=== PATIENT | male | born 1990 | race Caucasian/White ===

== ENCOUNTER 2022-08-21 10:09 | Emergency (ER) | payer OTHER, SELFPAY ==
--- NOTE | ~2022-08-21 | CT_ITS ---
Non-contrast CT scan of the Abdomen and Pelvis Clinical indication: Left inguinal pain Technique: 2.5 mm axial scans were obtained through the abdomen and pelvis without intravenous or or al contrast. Dose reduction technique was used on this scan by utilizing automated exposure control a nd iterative reconstruction technique. The dose-length product (DLP) was 1340.88 mGy-cm. Findings: Images through the lung bases reveal no abnormalities. There is no evidence of renal or ureteral calculi. The kidneys and the ureters are nondilated. The liver, spleen, pancreas, gallbladder, and adrenals appear normal. There is no aortic aneurysm. There is no evidence of bowel obstruction. Tiny fat-containing umbilical hernia noted. Images through the pelvis were performed. There is no evidence of ascites or lymphadenopathy. Urinary bladder unremarkable. Prostate gland and seminal vesicles are unremarkable. No hernia evident. Impression: Tiny fat-containing umbilical hernia, otherwise unremarkable exam. Reviewed, dictated and finalized at [facility]. Impression: Tiny fat-containing umbilical hernia, otherwise unremarkable exam.
[2022-08-21 10:10] VITALS: BP 170/93; PULSE 89; RESP 16; TEMP 36.7; O2SAT 98
--- NOTE | 2022-08-21 10:25 | ED.GENADULT ---
HPI - General Adult General Chief complaint: Urogenital-Male Stated complaint: L groin pain Time Seen by Provider: 08/21/22 10:14 History of Present Illness HPI narrative: 32-year-old male no medical problems presents to the emergency room for evaluation of left inguinal pain. States pain began several days ago, worse when he stands up and resolves when he lays flat. Denies any palpable bulge in the area. Denies abdominal pain, nausea vomiting diarrhea, dysuria or fevers. States pain radiates into his left testicle. 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 States he is active and plays volleyball twice a week. Related Data Home Medications Medication Instructions Recorded Confirmed dextroamphetamine-amphetamine ER 15 mg PO DAILY 08/21/22 08/21/22 15 mg 24hr capsule,extend release (Adderall XR) Allergies Allergy/AdvReac Type Severity Reaction Status Date / Time Sulfa (Sulfonamide Allergy Unknown Other Verified 08/21/22 10:25 Antibiotics) Review of Systems Review of Systems: CONSTITUTIONAL: Denies fever, chills, or sweats. EYES: Denies visual changes, redness, or discharge. ENT: Denies rhinorrhea, congestion, sore throat, or otalgia. CARDIOVASCULAR: Denies chest pain, palpitations, or edema. RESPIRATORY: Denies cough or dyspnea. GASTROINTESTINAL: Denies abdominal pain, nausea, vomiting, or diarrhea. GENITOURINARY: Denies dysuria or hematuria. SKIN: Denies rash or itching. MUSCULOSKELETAL: Denies back pain, joint pain, or myalgia. NEUROLOGIC: Denies headache, numbness, dizziness, or weakness. PSYCHIATRIC: Denies anxiety or depression. PMFSH Past Medical History Medical History No pertinent past medical history Family History Family History Mother Family history of diabetes mellitus in first degree relative Other Carcinoma of colon Social History Social History Smoking status: Never smoker Alcohol intake: current Exam Narrative: GENERAL: Well-appearing, well-nourished, no physical limitations, and in no acute distress. HEAD: Normocephalic, atraumatic. EYES: Conjunctivae normal, PERRLA and EOMI. CHEST: Clear to auscultation. No respiratory distress. No wheezes rales or rhonchi. HEART: Regular rate and rhythm. No murmur heard. Normal peripheral pulses. ABDOMEN: Soft, left inguinal tenderness, nondistended, normal active bowel sounds. : Normal external male exam. BACK: No CVA tenderness EXTREMITIES: Normal range of motion. No edema. No clubbing or cyanosis SKIN: Warm, dry, no rash. No noted wounds NEURO: No focal deficits. Alert and oriented x3. MAEW. CN's II-XI intact bilaterally, normal gait PSYCH: Cooperative. Normal mood and affect. Course Vital Signs Vital signs: Vital Signs Temperature 36.7 C 08/21/22 10:10 Pulse Rate 89 08/21/22 10:10 Respiratory Rate 16 08/21/22 10:10 Blood Pressure 170/93 H 08/21/22 10:10 Pulse Oximetry 98 08/21/22 10:10 Temperature 36.7 C 08/21/22 10:10 Pulse Rate 89 08/21/22 10:10 Respiratory Rate 16 08/21/22 10:10 Blood Pressure 170/93 H 08/21/22 10:10 Pulse Oximetry 98 08/21/22 10:10 Medical Decision Making MDM Narrative Medical decision making narrative: 32-year-old male presented emergency room complaints of a left inguinal tenderness since yesterday. Lab work was unremarkable. CT scan showed a small fat-containing inguinal hernia. Will have patient follow-up with general surgery for further evaluation. Vital Signs Vital Signs: Vital Signs Temperature 36.7 C 08/21/22 10:10 Pulse Rate 89 08/21/22 10:10 Respiratory Rate 16 08/21/22 10:10 Blood Pressure 170/93 H 08/21/22 10:10 Pulse Oximetry 98 08/21/22 10:10 Temperature 36.7 C 08/21/22 10:10 Pulse Rate 89 08/21/22 10:10
[2022-08-21 10:44] LABS: Basophils Percent Auto 0.5 % (0.2-1.2); Eosinophils Absolute Auto 0.1 K/mm3 (0-0.3); Eosinophils Percent Auto 1.4 % (0-4.4); Hematocrit 48.4 % (42.0-52.0); Hemoglobin 16.5 g/dL (14.0-18.0); Immature Granulocyte Absolute 0.03 K/mm3 (0.00-0.031); Immature Granulocyte Percent A 0.4 % (0-0.5); Lymphocytes Percent Auto 23.8 % (18.3-44.2); Mean Corpuscular HGB Conc 34.1 g/dl (32-36); Mean Corpuscular Hemoglobin 30.2 pg (26-34); Mean Corpuscular Volume 88.6 fl (80-100); Mean Platelet Volume 9.1 fl (7.4-10.4); Monocytes Absolute Auto 0.7 K/mm3 (0.1-0.6); Monocytes Percent Auto 8.1 % (2.6-8.5); Neutrophils Absolute Auto 5.3 K/mm3 (1.3-6.7); Neutrophils Percent Auto 65.8 % (45.5-73.1); Platelet Count Result 328 k/mm3 (150-375); Red Blood Count 5.46 M/mm3 (4.6-6.20); Red Cell Distribution Width 12.3 % (11.5-14.5)
[2022-08-21 10:47] LABS: Appearance Urine Clear (Clear); Bacteria Urine None Seen /hpf; Bilirubin Urine Negative (Negative); Blood Urine Negative (Negative); Color Urine Yellow (Yellow); Glucose Urine UA Negative (Negative); Ketones Urine Trace mg/dL (Negative); Leukocyte Esterase Ur Negative LEU/UL (Negative); Nitrate Urine Negative (Negative); Non Pathogenic Casts 0-2; Protein Urine Trace mg/dL (Negative); RBC Urine 0-2 /hpf (0-2); Squamous Epithelial Cell Urine None seen /hpf (Few); Urobilinogen Urine 0.2 mg/dL (<2.0); WBC Urine 0-5 /hpf
[2022-08-21 10:50] LABS: Alanine Aminotransferase 32 U/L (6-50); Albumin Level 4.9 g/dL (3.5-5.1); Alkaline Phosphatase 77 U/L (38-126); Anion Gap 13 mmol/L (8-16); Aspartate Amino Transferase 34 U/L (17-59); Blood Urea Nitrogen 9 mg/dL (9-20); Calcium 9.2 mg/dL (8.4-10.2); Carbon Dioxide 22 mmol/L (22-30); Chloride 106 mmol/L (98-107); Estimated CRCL calculation 144 ml/min; Estimated Glomerular Filt Rate > 60; Glucose 105 mg/dL (65-110); Potassium 3.9 mmol/L (3.4-5.0); Sodium 141 mmol/L (137-145)
[2022-08-21 10:51] LABS: Add Urine Microscopic? YES
== END 2022-08-21 11:34 | disposition home or self-care (01) ==
PROVIDERS: Emergency Provider Nurse Practitioner Family; PCP Emergency Medicine
DX: K40.90 Unilateral inguinal hernia, without obstruction or gangrene, not specified as recurrent (principal)
CPT/HCPCS: 36415; 74176; 80053; 81001; 85025; 99284

== ENCOUNTER → 2023-01-04 08:57 | Outpatient (CLI) | payer OTHER, SELFPAY ==
--- NOTE | ~2023-01-04 | XR_ITS ---
XR lumbar spine 2-3V 01/04/2023 09:30 Indication: Back pressure Procedure: 3 views lumbar spine Comparison: No prior studies for comparison. Findings: Mild levoscoliosis. Pedicles intact. Vertebral body heights are maintained. Mild disc narro wing at L5-S1. No evidence for spondylolisthesis. Sacral foramen are symmetric. No acute fracture or traumatic malalignment. Impression: 1: Mild lumbar spondylosis. Reviewed, dictated and finalized at location A. Impression: 1: Mild lumbar spondylosis.
--- NOTE | ~2023-01-04 | XR_ITS ---
XR abdomen/kub 1V 01/04/2023 09:30 INDICATION: Left flank pain TECHNIQUE: KUB COMPARISON: No prior studies for comparison. FINDINGS: Bowel gas pattern is normal. There is no evidence of free air, mass, organomegaly, ascites or obstruction. No abnormal calculi are seen. The bones appear intact. IMPRESSION: 1: No acute abdominal abnormality identified. Reviewed, dictated and finalized at location A.
== END ==
PROVIDERS: PCP Emergency Medicine; Visit Provider Emergency Medicine
DX: M43.06 Spondylolysis, lumbar region (principal)
CPT/HCPCS: 72100; 74018

== ENCOUNTER 2023-05-13 18:59 | Emergency (ER) | payer OTHER, SELFPAY ==
--- NOTE | ~2023-05-13 | CT_ITS ---
EXAMINATION: CTA chest PE abdomen pel DATE: 05/13/2023 22:38 INDICATION: Shortness of breath, near syncope eval PE TECHNIQUE: Computed tomography angiography (CTA) of the chest was performed with 100 mL Omnipaque-350 intravenous contrast timed to evaluate the pulmonary arteries, followed by portal venous phase imagi ng of the abdomen and pelvis. Coronal maximum intensity projection 3D-reconstructions were created by the technologist. The dose-length product (DLP) was 2304.94 mGy-cm. Automated exposure control and i terative reconstruction technique were employed. COMPARISON: 08/21/2022. FINDINGS: CHEST: Lung parenchyma and airways: Mild diffuse ground glass opacities. Lingular and right lateral costophr enic angle scar/atelectasis. Pleura: Unremarkable. Thoracic inlet, axillae and chest wall: No thyroid or soft tissue mass. Minimal symmetric bilateral g ynecomastia. Thoracic aorta: No acute process detected in the chest. Mediastinum: Normal. Heart and pericardium: Normal. Coronary artery calcifications: Absent. Thoracic bones: No acute osseous finding. Pulmonary arteries: Study quality: There is mild motion artifact present, overall diagnostic. No pulm onary emboli detected. ABDOMEN/PELVIS: Liver: Normal. Biliary/Gallbladder: Gallbladder is normal. No bile duct dilation. Pancreas: No mass or duct dilation. Spleen: Normal. Adrenals:No mass. Kidneys: No suspicious mass, obstructing stone, or hydronephrosis. GI tract: No small or large bowel dilation. Normal appendix. Mesentery/Peritoneum: No ascites, mass, or free air. Retroperitoneum: No mass. Pelvis: Pelvic organs are within normal limits. Soft Tissues: Small uncomplicated fat-containing umbilical hernia. Abdominopelvic bones: No acute osseous finding. IMPRESSION: No CT evidence of acute pulmonary embolus. Mild diffuse groundglass opacities in the lungs, a nonspecific finding, may represent mild edema, ate lectasis, or infection/inflammation. No acute process detected in the abdomen or pelvis. Reviewed, dictated and finalized at location K. LE MECHANIC HELPER IMPRESSION: No CT evidence of acute pulmonary embolus. Mild diffuse groundglass opacities in the lungs, a nonspecific finding, may rep resent mild edema, atelectasis, or infection/inflammation. No acute process detected in the abdomen or pelvis.
[2023-05-13 19:16] VITALS: BP 166/89; PULSE 61; RESP 20; TEMP 36.3; O2SAT 100
--- NOTE | 2023-05-13 20:44 | ECG_ITS ---
Measurements Intervals [place] Rate: 60 P: -12 LA: 162 QRS: 8 QRSD: 94 T: 13 QT: 400 QTc: 403 Interpretive Statements SINUS RHYTHM NO PREVIOUS ECG AVAILABLE FOR COMPARISON Electronically Signed On 05-14-2023 16:26:05 DIEING OUT MACHINE OPERATOR by Ken Cortes M.D.
[2023-05-13 21:32] VITALS: BP 135/77; PULSE 62; RESP 15; O2SAT 100
[2023-05-13 21:38] LABS: Basophils Absolute Auto 0.1 K/mm3 (0.0-0.1); Basophils Percent Auto 0.5 % (0.2-1.2); Eosinophils Absolute Auto 0.1 K/mm3 (0-0.3); Eosinophils Percent Auto 0.6 % (0-4.4); Hematocrit 48.3 % (42.0-52.0); Hemoglobin 16.5 g/dL (14.0-18.0); Immature Granulocyte Absolute 0.03 K/mm3 (0.00-0.031); Immature Granulocyte Percent A 0.3 % (0-0.5); Lymphocytes Absolute Auto 2.51 K/mm3 (0.9-3.2); Lymphocytes Percent Auto 26.6 % (18.3-44.2); Mean Corpuscular HGB Conc 34.2 g/dl (32-36); Mean Corpuscular Hemoglobin 30.1 pg (26-34); Mean Corpuscular Volume 88.1 fl (80-100); Mean Platelet Volume 9.6 fl (7.4-10.4); Monocytes Absolute Auto 0.7 K/mm3 (0.1-0.6); Monocytes Percent Auto 7.4 % (2.6-8.5); Neutrophils Absolute Auto 6.1 K/mm3 (1.3-6.7); Neutrophils Percent Auto 64.6 % (45.5-73.1); Platelet Count Result 303 k/mm3 (150-375); Red Blood Count 5.48 M/mm3 (4.6-6.20); Red Cell Distribution Width 12.3 % (11.5-14.5); White Blood Count 9.4 K/mm3 (4.5-10.0)
[2023-05-13 21:39] LABS: Appearance Urine Clear (Clear); Bilirubin Urine Negative (Negative); Blood Urine Negative (Negative); Color Urine Yellow (Yellow); Glucose Urine UA Negative (Negative); Ketones Urine Trace mg/dL (Negative); Leukocyte Esterase Ur Negative LEU/UL (Negative); Nitrate Urine Negative (Negative); Protein Urine Negative (Negative); Specific Grav Ur 1.019 (1.001-1.035); Urobilinogen Urine 0.2 mg/dL (<2.0)
[2023-05-13 21:45] LABS: Lactic Acid Reflex 1.1 mmol/L (0.7-2.0)
[2023-05-13 21:52] LABS: Prothrombin Time 13.5 Seconds (11.1-14.7)
[2023-05-13 21:53] LABS: Partial Thromboplastin Time 33.6 SECONDS (22.3-36.8)
[2023-05-13 22:01] LABS: Add Urine Microscopic? NO
[2023-05-13 22:02] LABS: Alanine Aminotransferase 30 U/L (6-50); Albumin Level 4.7 g/dL (3.5-5.1); Alkaline Phosphatase 72 U/L (38-126); Anion Gap 7 mmol/L (8-16); Aspartate Amino Transferase 40 U/L (17-59); Bilirubin,Total 1.2 mg/dL (0.2-1.3); Blood Urea Nitrogen 11 mg/dL (9-20); Calcium 9.9 mg/dL (8.4-10.2); Carbon Dioxide 26 mmol/L (22-30); Chloride 104 mmol/L (98-107); Estimated CRCL calculation 130 ml/min; Estimated Glomerular Filt Rate > 60; Glucose 86 mg/dL (65-110); Lipase 60 U/L (23-300); Magnesium 2.1 mg/dL (1.6-2.3); Potassium 4.2 mmol/L (3.4-5.0); Sodium 137 mmol/L (137-145)
[2023-05-13 22:12] LABS: Influenza A QL RT-PCR Negative (Negative); Influenza B QL RT-PCR Negative (Negative); SARS-CoV-2 RNA PCR Negative (Negative)
[2023-05-13 22:13] LABS: NT Pro B Type Natriuretic Pept < 20 pg/mL (19.9-100); Troponin I < 0.012 ng/mL (0.000-0.034)
--- NOTE | 2023-05-13 22:15 | ED.GENADULT ---
HPI - General Adult General Chief complaint: Dizziness Stated complaint: dizzy Time Seen by Provider: 05/13/23 20:24 History of Present Illness HPI narrative: Patient 33-year-old gentleman who presents emergency department with chief complaint of shortness of breath and dizzy episode. The patient reports that he had an episode today where he was walking and noticed that he felt as though his heart was beating very heavy and may have been beating fast the same time the patient states he felt very short of breath when this was going on hand felt lightheaded. The patient states that the lightheadedness is resolved but does state that he feels a little short of breath. Patient reports that he has discomfort in the left upper quadrant that radiates to the back. Related Data Home Medications Medication Instructions Recorded Confirmed dextroamphetamine-amphetamine ER 15 mg PO DAILY 08/21/22 08/21/22 15 mg 24hr capsule,extend release (Adderall XR) Allergies Allergy/AdvReac Type Severity Reaction Status Date / Time Sulfa (Sulfonamide Allergy Unknown Other Verified 09/03/22 09:28 Antibiotics) Review of Systems Review of Systems: A 10 system review of systems was completed on the patient and is negative except for what is stated in the HPI. Nursing and ancillary documentation was reviewed. [facility] Past Medical History Medical History No pertinent past medical history Surgical History Surgical History No pertinent past surgical history Family History Family History Mother Family history of diabetes mellitus in first degree relative Other Carcinoma of colon Social History Social History Smoking status: Current every day smoker Tobacco type: e-cigarettes/vaping Alcohol intake: current Alcohol use details: Used to drink daily but since March 2022 only socially/weekends Exam Narrative: GENERAL: Well-appearing, well-nourished, and in no acute distress. HEAD: Normocephalic, atraumatic. EYES: PERRLA and EOMI. ENT: Nares clear, no rhinorrhea or epistaxis. Mucous membranes moist. NECK: Supple. CHEST: Clear to auscultation. No respiratory distress. HEART: Regular rate and rhythm. No murmur heard. Normal peripheral pulses. ABDOMEN: Soft, tenderness to palpation in the epigastric and left upper quadrant, nondistended, normal active bowel sounds. EXTREMITIES: Normal range of motion. No edema. SKIN: Warm, dry, no rash. NEURO: No focal deficits. Alert and oriented x3. PSYCH: Normal mood and affect. Course Vital Signs Vital signs: Vital Signs Temperature 36.3 C L 05/13/23 19:16 Pulse Rate 61 05/13/23 19:16 Respiratory Rate 20 05/13/23 19:16 Blood Pressure 166/89 H 05/13/23 19:16 Pulse Oximetry 100 05/13/23 19:16 Oxygen Delivery Room Air 05/13/23 19:16 Temperature 36.3 C L 05/13/23 19:16 Pulse Rate 60 05/13/23 22:16 Respiratory Rate 13 05/13/23 22:16 Blood Pressure 132/77 05/13/23 22:16 Pulse Oximetry 99 05/13/23 22:16 Oxygen Delivery Room Air 05/13/23 19:16 Medical Decision Making [facility] Narrative Medical decision making narrative: Differential diagnosis includes pneumonia, pulmonary embolism, pneumothorax, intra-abdominal infection, thoracic aortic aneurysm, pneumonia Laboratory studies were obtained patient showed a normal white blood cell count electrolytes within normal limits troponin was negative BNP was negative procalcitonin 0.0 urinalysis was negative COVID and flu were negative CTA chest with abdomen pelvis showed no intra-abdominal pathology but did show ground-glass opacities consistent with pneumonitis. Patient was started on doxycycline and patient is discharged home Vital Signs
[2023-05-13 22:16] VITALS: BP 132/77; PULSE 60; RESP 13; O2SAT 99
[2023-05-13 23:00] VITALS: PULSE 63; RESP 9; O2SAT 99
[2023-05-13 23:17] VITALS: BP 134/76; PULSE 69; RESP 8; O2SAT 98
== END 2023-05-13 23:34 | disposition home or self-care (01) ==
PROVIDERS: Emergency Provider Emergency Medicine; PCP Emergency Medicine
DX: J98.4 Other disorders of lung (principal); Z20.822 Contact with and (suspected) exposure to COVID-19; F17.290 Nicotine dependence, other tobacco product, uncomplicated
CPT/HCPCS: 36415; 71275; 74177; 80053; 81003; 83605; 83690; 83735; 83880; 84145; 84484; 85025; 85610; 85730; 87636; 93005; 99284; Q9967

== ENCOUNTER 2023-06-13 10:53 | Outpatient (CLI) | payer OTHER, SELFPAY ==
--- NOTE | ~2023-06-13 | XR_ITS ---
EXAMINATION: XR chest 2V 06/13/2023 12:51 INDICATION: Pneumonia PROCEDURE: 2 view chest COMPARISON: No prior studies for comparison. FINDINGS: The lungs are clear. The cardiomediastinal silhouette is within normal limits. There are no pleural effusions. There is no pneumothorax suspected. IMPRESSION: 1: NO ACUTE CARDIOPULMONARY DISEASE. Reviewed, dictated and finalized at location B.
== END 2023-06-13 10:54 ==
PROVIDERS: PCP Emergency Medicine; Visit Provider Emergency Medicine
DX: J18.9 Pneumonia, unspecified organism (principal)
CPT/HCPCS: 71046

== ENCOUNTER 2023-07-22 09:28 | Emergency (ER) | payer OTHER, SELFPAY ==
--- NOTE | ~2023-07-22 | CT_ITS ---
EXAMINATION: CT abdomen pelvis w con DATE: 07/22/2023 10:34 INDICATION: Left abdominal pain. TECHNIQUE: Computed tomography (CT) of the abdomen and pelvis was performed with 100 mL Omnipaque 350 intravenous contrast. Automated exposure control and iterative reconstruction technique were employe d. The dose-length product was 1232.29 mGy-cm. COMPARISON: CT abdomen and pelvis 05/13/2023 FINDINGS: The visualized portions of the lung bases demonstrate mild atelectasis. No pleural effusion . The heart size is normal. No pericardial effusion. The liver, spleen, gallbladder, pancreas, adrena l glands, and kidneys are normal. There are no dilated loops of bowel. The appendix is normal. There is an umbilical hernia containing fat. There are no pathologically enlarged lymph nodes. There is no free intraperitoneal fluid. There is mild thoracic and lumbar spondylosis. IMPRESSION: 1. Umbilical hernia containing fat. Reviewed, dictated and finalized at location A.
[2023-07-22 09:54] LABS: Basophils Percent Auto 0.6 % (0.2-1.2); Eosinophils Absolute Auto 0.1 K/mm3 (0-0.3); Eosinophils Percent Auto 1.3 % (0-4.4); Immature Granulocyte Absolute 0.01 K/mm3 (0.00-0.031); Immature Granulocyte Percent A 0.2 % (0-0.5); Lymphocytes Absolute Auto 1.92 K/mm3 (0.9-3.2); Lymphocytes Percent Auto 30.6 % (18.3-44.2); Mean Corpuscular Hemoglobin 30.2 pg (26-34); Mean Corpuscular Volume 88.8 fl (80-100); Mean Platelet Volume 9.7 fl (7.4-10.4); Monocytes Absolute Auto 0.5 K/mm3 (0.1-0.6); Monocytes Percent Auto 8.3 % (2.6-8.5); Neutrophils Absolute Auto 3.7 K/mm3 (1.3-6.7); Platelet Count Result 285 k/mm3 (150-375); Red Blood Count 5.63 M/mm3 (4.6-6.20); Red Cell Distribution Width 11.8 % (11.5-14.5); White Blood Count 6.3 K/mm3 (4.5-10.0)
[2023-07-22 10:03] VITALS: BP 154/94; PULSE 77; RESP 14; TEMP 36.6; O2SAT 98
[2023-07-22 10:06] LABS: Alanine Aminotransferase 27 U/L (6-50); Albumin Level 5.1 g/dL (3.5-5.1); Alkaline Phosphatase 72 U/L (38-126); Anion Gap 9 mmol/L (4-12); Aspartate Amino Transferase 35 U/L (17-59); Bilirubin,Total 1.3 mg/dL (0.2-1.3); Blood Urea Nitrogen 10 mg/dL (9-20); Calcium 10.1 mg/dL (8.4-10.2); Carbon Dioxide 24 mmol/L (22-30); Chloride 107 mmol/L (98-107); Estimated Glomerular Filt Rate > 60; Glucose 116 mg/dL (65-110); Lipase 56 U/L (23-300); Potassium 4.2 mmol/L (3.4-5.0); Sodium 140 mmol/L (137-145)
--- NOTE | 2023-07-22 10:11 | ED.ABDPAIN ---
HPI - Abdominal Pain General Chief Complaint: Abdominal Pain Stated Complaint: r/o sbo Time Seen by Provider: 07/22/23 09:47 Source: patient Mode of arrival: ambulatory Limitations: no limitations History of Present Illness HPI narrative: This is a 33-year-old male who presents from PCP office for chief complaint of left-sided abdominal pain for the past couple of weeks. Patient reports the pain radiates from left upper to left lower abdomen. He was referred by PCP for CT scan and labs. Patient states that the pain is getting increasingly worse after eating food. Reports that he will eat and then started to have pain a couple hours later. Reports a burning type pain. Reports that he tried to use ibuprofen regularly for pain control but had couple episodes of bloody stools so stop. Denies fevers, chills, nausea, vomiting flank pain or urinary symptoms. States he feels completely fine unless he eats food. Denies abdominal surgical history. Social history includes working for [employer]. He does state that he is a somewhat regular alcohol drinker but primarily drinks socially. Related Data Home Medications Medication Instructions Recorded Confirmed dextroamphetamine-amphetamine ER 15 mg PO DAILY 08/21/22 08/21/22 15 mg 24hr capsule,extend release (Adderall XR) Allergies Allergy/AdvReac Type Severity Reaction Status Date / Time Sulfa (Sulfonamide Allergy Unknown Other Verified 09/03/22 09:28 Antibiotics) Review of Systems Review of Systems: All systems as dictated in HPI [facility] Past Medical History Medical History No pertinent past medical history Surgical History Surgical History No pertinent past surgical history Family History Family History Mother Family history of diabetes mellitus in first degree relative Other Carcinoma of colon Social History Social History Smoking status: Current every day smoker Tobacco type: e-cigarettes/vaping Alcohol intake: current Alcohol use details: Used to drink daily but since March 2022 only socially/weekends Exam Narrative: GENERAL: Well-appearing, well-nourished, and in no acute distress. HEAD: Normocephalic, atraumatic. EYES: PERRLA and EOMI. ENT: Nares clear, no rhinorrhea or epistaxis. Mucous membranes moist. Oropharynx without tonsillar hypertrophy exudate or other lesions. NECK: Supple. No adenopathy or masses. CHEST: No respiratory distress. Clear to auscultation. No wheezes rales or rhonchi HEART: Regular rate and rhythm. No murmur heard. Normal peripheral pulses. ABDOMEN: Soft, nontender, nondistended, normal active bowel sounds. MSK: Normal range of motion. No edema. SKIN: Warm, dry, no rash. NEURO: Alert and oriented x3. No focal deficits. PSYCH: Normal mood and affect. Course Vital Signs Vital signs: Vital Signs Temperature 98 F 07/22/23 10:03 Pulse Rate 77 07/22/23 10:03 Respiratory Rate 14 07/22/23 10:03 Blood Pressure 154/94 H 07/22/23 10:03 Pulse Oximetry 98 07/22/23 10:03 Oxygen Delivery Room Air 07/22/23 10:03 Temperature 98.3 F 07/22/23 11:14 Pulse Rate 78 07/22/23 11:14 Respiratory Rate 18 07/22/23 11:14 Blood Pressure 141/73 H 07/22/23 11:14 Pulse Oximetry 99 07/22/23 11:14 Oxygen Delivery Room Air 07/22/23 10:03 MDM - Abdominal Pain MDM Narrative Medical decision making narrative: This is a 33-year-old male who presents to the ED with chief complaint left-sided abdominal pain for the past few weeks. He is being sent by PCP for expedited abdominal workup. Vitals are normal. Exam shows mild left lower quadrant tenderness. Lab workup unremarkable. CT abdomen pelvis with IV contrast: IMPRESSION: 1.
[2023-07-22 10:51] LABS: Appearance Urine Clear (Clear); Bilirubin Urine Negative (Negative); Blood Urine Negative (Negative); Color Urine Yellow (Yellow); Glucose Urine UA Negative (Negative); Ketones Urine Trace mg/dL (Negative); Leukocyte Esterase Ur Negative LEU/UL (Negative); Nitrate Urine Negative (Negative); Protein Urine Negative (Negative); Urobilinogen Urine 0.2 mg/dL (<2.0); pH Urine 5.5 (5.0-9.0)
[2023-07-22 10:55] LABS: Specific Grav Ur 1.041 (1.001-1.035)
[2023-07-22 10:56] LABS: Add Urine Microscopic? NO
[2023-07-22 11:14] VITALS: BP 141/73; PULSE 78; RESP 18; TEMP 36.8; O2SAT 99
== END 2023-07-22 11:16 | disposition home or self-care (01) ==
PROVIDERS: Emergency Medicine; Emergency Provider Physician Assistant; PCP Emergency Medicine
DX: K29.70 Gastritis, unspecified, without bleeding (principal); K42.9 Umbilical hernia without obstruction or gangrene; F17.290 Nicotine dependence, other tobacco product, uncomplicated
CPT/HCPCS: 36415; 74177; 80053; 81001; 81003; 83690; 85025; 99284; Q9967

== ENCOUNTER 2023-11-03 10:29 | Emergency (ER) | payer OTHER, SELFPAY ==
--- NOTE | ~2023-11-03 | XR_ITS ---
EXAMINATION: XR chest 2V DATE: 11/03/2023 13:06 INDICATION: Chest pain and tightness radiating down the left arm TECHNIQUE: PA and lateral views of the chest were obtained. COMPARISON: Chest radiograph dated 06/13/2023 FINDINGS: The lungs remain clear with no focal airspace opacities, pulmonary edema, pleural effusion or pneumot horax. The cardiomediastinal silhouette is normal. Visualized bones and soft tissues are unremarkable . IMPRESSION: 1. No acute cardiopulmonary disease. Reviewed, dictated and finalized at location A.
[2023-11-03 10:35] VITALS: BP 132/102; PULSE 64; RESP 15; TEMP 36.8; O2SAT 97
--- NOTE | 2023-11-03 10:35 | ECG_ITS ---
Test Date: 2023-11-03 10:40:24 Measurements Intervals [place] Rate: 63 P: 6 [place]: 154 QRS: -2 QRSD: 93 T: 38 QT: 373 QTc: 383 Interpretive Statements SINUS RHYTHM WITH SINUS ARRHYTHMIA OTHERWISE NORMAL ECG No previous ECG available for comparison Electronically Signed On 11-03-2023 11:03:35 CDT by Shaji Jackson M.D.
[2023-11-03 11:09] LABS: Basophils Absolute Auto 0.1 K/mm3 (0.0-0.1); Basophils Percent Auto 0.7 % (0.2-1.2); Eosinophils Absolute Auto 0.1 K/mm3 (0-0.3); Eosinophils Percent Auto 1.3 % (0-4.4); Hematocrit 48.2 % (42.0-52.0); Hemoglobin 16.6 g/dL (14.0-18.0); Immature Granulocyte Absolute 0.02 K/mm3 (0.00-0.031); Immature Granulocyte Percent A 0.3 % (0-0.5); Lymphocytes Absolute Auto 1.93 K/mm3 (0.9-3.2); Lymphocytes Percent Auto 27.1 % (18.3-44.2); Mean Corpuscular HGB Conc 34.4 g/dl (32-36); Mean Corpuscular Hemoglobin 30.8 pg (26-34); Mean Corpuscular Volume 89.4 fl (80-100); Mean Platelet Volume 10.1 fl (7.4-10.4); Monocytes Absolute Auto 0.6 K/mm3 (0.1-0.6); Neutrophils Absolute Auto 4.5 K/mm3 (1.3-6.7); Neutrophils Percent Auto 62.6 % (45.5-73.1); Platelet Count Result 247 k/mm3 (150-375); Red Blood Count 5.39 M/mm3 (4.6-6.20); Red Cell Distribution Width 12.3 % (11.5-14.5); White Blood Count 7.1 K/mm3 (4.5-10.0)
[2023-11-03 11:31] LABS: Alanine Aminotransferase 28 U/L (6-50); Alkaline Phosphatase 77 U/L (38-126); Anion Gap 14 mmol/L (4-12); Aspartate Amino Transferase 35 U/L (17-59); Bilirubin,Total 1.1 mg/dL (0.2-1.3); Blood Urea Nitrogen 10 mg/dL (9-20); Calcium 9.7 mg/dL (8.4-10.2); Carbon Dioxide 22 mmol/L (22-30); Chloride 103 mmol/L (98-107); Estimated CRCL calculation 138 ml/min; Estimated Glomerular Filt Rate > 60; Glucose 106 mg/dL (65-110); Lipase 54 U/L (23-300); Potassium 4.1 mmol/L (3.4-5.0); Sodium 139 mmol/L (137-145)
[2023-11-03 11:37] LABS: Partial Thromboplastin Time 25.1 Seconds (22.3-36.8); Prothrombin Time 13.6 Seconds (11.1-14.7)
[2023-11-03 11:43] LABS: Troponin I < 0.012 ng/mL (0.000-0.034)
[2023-11-03 12:15] VITALS: BP 150/89; PULSE 57; PULSE 63; RESP 12; O2SAT 99
[2023-11-03 12:17] VITALS: BP 150/89; PULSE 58; RESP 14; O2SAT 99
[2023-11-03] MEDS: ASPIRIN 81 MG CHEWABLE TABLET 324 MG PO (12:48)
--- NOTE | 2023-11-03 12:57 | ED.GENADULT ---
HPI - General Adult General Chief complaint: Chest Pain Stated complaint: chest pain Time Seen by Provider: 11/03/23 12:40 History of Present Illness HPI narrative: Patient 33-year-old gentleman who presents emergency department with chief complaint of chest pain. Patient reports since the he has been having discomfort in the left shoulder back chest patient states the pain has been intermittent reports he had limited tingling in his arm and into his neck patient reports that he talk to his primary care provider who recommended he come to the emergency department is also referred him to Cardiology and Neurology. Patient reports that the symptoms are intermittent and currently he is not having any pain Related Data Allergies Allergy/AdvReac Type Severity Reaction Status Date / Time Sulfa (Sulfonamide Allergy Unknown Other Verified 11/03/23 12:18 Antibiotics) Review of Systems Review of Systems: A 10 system review of systems was completed on the patient and is negative except for what is stated in the HPI. Nursing and ancillary documentation was reviewed. PMFSH Past Medical History Medical History No pertinent past medical history Surgical History Surgical History No pertinent past surgical history Family History Family History Mother Family history of diabetes mellitus in first degree relative Other Carcinoma of colon Social History Social History Smoking status: Current every day smoker Tobacco type: e-cigarettes/vaping Alcohol intake: current Alcohol use details: Used to drink daily but since March 2022 only socially/weekends Exam Narrative: GENERAL: Well-appearing, well-nourished, and in no acute distress. HEAD: Normocephalic, atraumatic. EYES: PERRLA and EOMI. ENT: Nares clear, no rhinorrhea or epistaxis. Mucous membranes moist. NECK: Supple. CHEST: Clear to auscultation. No respiratory distress. HEART: Regular rate and rhythm. No murmur heard. Normal peripheral pulses. ABDOMEN: Soft, nontender, nondistended, normal active bowel sounds. EXTREMITIES: Normal range of motion. No edema. SKIN: Warm, dry, no rash. NEURO: No focal deficits. Alert and oriented x3. PSYCH: Normal mood and affect. Course Vital Signs Vital signs: Vital Signs Temperature 36.8 C 11/03/23 10:35 Pulse Rate 64 11/03/23 10:35 Respiratory Rate 15 11/03/23 10:35 Blood Pressure 132/102 H 11/03/23 10:35 Pulse Oximetry 97 11/03/23 10:35 Oxygen Delivery Room Air 11/03/23 10:35 Temperature 36.8 C 11/03/23 10:35 Pulse Rate 56 L 11/03/23 13:41 Respiratory Rate 21 H 11/03/23 13:41 Blood Pressure 120/74 11/03/23 13:41 Pulse Oximetry 98 11/03/23 13:41 Oxygen Delivery Room Air 11/03/23 12:17 Medical Decision Making MDM Narrative Medical decision making narrative: Differential diagnosis includes ACS, noncardiac chest pain, gastroesophageal reflux disease, atypical chest pain, musculoskeletal pain Laboratory studies were obtained on the patient showed normal CBC normal CMP troponin was negative EKG showed sinus rhythm rate of [address] elevation or ST depression Initial troponin was-3 hour troponin was negative Patient will be discharged home to follow-up with his primary care provider Chest x-ray showed no focal infiltrate Vital Signs Vital Signs: Vital Signs Temperature 36.8 C 11/03/23 10:35 Pulse Rate 64 11/03/23 10:35 Respiratory Rate 15 11/03/23 10:35 Blood Pressure 132/102 H 11/03/23 10:35 Pulse Oximetry 97 11/03/23 10:35 Oxygen Delivery Room Air 11/03/23 10:35 Temperature 36.8 C 11/03/23 10:35 Pulse Rate 56 L 11/03/23 13:41 Respiratory Rate 21 H 11/03/23 13:41 Blood
[2023-11-03 13:00] VITALS: PULSE 63; RESP 11; O2SAT 98
--- NOTE | 2023-11-03 13:23 | ECG_ITS ---
Test Date: 2023-11-03 13:36:49 Measurements Intervals [place] Rate: 56 P: 5 ID: [id number] QRS: 0 QRSD: 97 T: 28 QT: 399 QTc: 387 Interpretive Statements SINUS BRADYCARDIA Compared to ECG 11/03/2023 10:40:24 NO SIGNIFICANT CHANGES Electronically Signed On 11-04-2023 10:14:31 CDT by Ken Cortes M.D.
[2023-11-03 13:41] VITALS: BP 120/74; PULSE 56; RESP 21; O2SAT 98
[2023-11-03 14:13] LABS: Troponin I < 0.012 ng/mL (0.000-0.034)
[2023-11-03 14:39] VITALS: BP 118/72; PULSE 62; RESP 18; O2SAT 98
== END 2023-11-03 14:41 | disposition home or self-care (01) ==
PROVIDERS: Student in an Organized Health Care Education/Training Program; Emergency Provider Emergency Medicine; PCP Emergency Medicine
DX: R07.89 Other chest pain (principal); F17.290 Nicotine dependence, other tobacco product, uncomplicated
CPT/HCPCS: 36415; 71046; 80053; 83690; 84484; 85025; 85610; 85730; 93005; 99284; A9270

== ENCOUNTER 2023-11-14 11:33 | Outpatient (CLI) | payer OTHER, SELFPAY ==
--- NOTE | ~2023-11-14 | XR_ITS ---
Cervical Spine: AP, lateral, open-mouth views Clinical History: Pain Findings: There is straightening of normal cervical lordosis. The vertebral bodies and posterior luis ments appear intact. The intervertebral disc spaces are well maintained. Pre-vertebral soft tissues are unremarkable. Impression: Straightening of the normal cervical lordosis, otherwise unremarkable exam. Reviewed, dictated and finalized at location . Impression: Straightening of the normal cervical lordosis, otherwise unremarkable exam.
--- NOTE | ~2023-11-14 | XR_ITS ---
Clinical Indication: Chest tightness PA and lateral views of the chest: Comparison: 11/03/2023 Findings: The lungs are clear, without evidence of focal consolidation or pleural effusion. Cardiome diastinal silhouette is within normal limits. Bones and soft tissues are unremarkable. Impression: Normal chest. Reviewed, dictated and finalized at [facility]. Impression: Normal chest.
--- NOTE | ~2023-11-14 | XR_ITS ---
Left Shoulder Technique: AP and axillary views were obtained. Clinical History: Left arm tingling Findings: No fracture or dislocation is seen. Osseous alignment is anatomic. The glenohumeral and acr omioclavicular joint spaces are preserved. Soft tissues are unremarkable. Impression: Unremarkable left shoulder radiographs. Reviewed, dictated and finalized at [facility]. Impression: Unremarkable left shoulder radiographs.
== END 2023-11-14 11:34 | disposition home or self-care (01) ==
LOC: MICIMG 11:36
PROVIDERS: PCP Emergency Medicine; Visit Provider Emergency Medicine
DX: M43.8X2 Other specified deforming dorsopathies, cervical region (principal); R07.89 Other chest pain
CPT/HCPCS: 71046; 72040; 73030

== ENCOUNTER 2024-03-04 09:45 | Outpatient (CLI) | payer OTHER, SELFPAY ==
--- NOTE | ~2024-03-04 | US_ITS ---
Limited Abdominal Sonogram: Real-time sonographic imaging of the right upper quadrant was performed. Clinical History: Abdominal pain Findings: The liver appears normal with no evidence of mass lesion or bile duct dilatation. Main por stella vein demonstrates normal direction of flow. The gallbladder is well distended, and appears normal with no evidence of gallstone or wall thickening. The common bile duct measures 3 mm. The visualize d pancreas, aorta, and IVC are unremarkable. Right kidney measures 10.6 cm in length, without hydrone phrosis or renal stone. Impression: No significant abnormality seen. Reviewed, dictated and finalized at location . E [facility] Impression: No significant abnormality seen.
== END 2024-03-04 09:46 | disposition home or self-care (01) ==
LOC: MICIMG 09:46
PROVIDERS: PCP Emergency Medicine; Visit Provider Emergency Medicine
DX: R10.9 Unspecified abdominal pain (principal)
CPT/HCPCS: 76705